=== PATIENT | male | born 1945 | race Caucasian/White ===

== ENCOUNTER → 2017-05-20 | Outpatient (CLI) | payer OTHER | LOC: FIMAGING 09:08 | PROVIDERS: ATTEND Family Medicine | DX: Z13.820 Encounter for screening for osteoporosis (principal); M81.0 Age-related osteoporosis without current pathological fracture ==

== ENCOUNTER 2017-06-08 13:49 | Inpatient (IN) | payer OTHER ==
--- NOTE | 2017-06-08 13:57 | EDPHY ---
HPI/HX/ROS/PE/MDM Narrative: CHIEF COMPLAINT: Chest pain HPI: The patient is a 71 y/o male arriving via EMS with a history of CAD, hyperlipidemia, and prior cardiac stents complaining of chest pain and dyspnea that began last night. He woke up this morning and the pain was still presents. He describes pinpoint "tightening" chest pain on the left side of his sternum. No obvious aggravating or alleviating factors. He had similar pain 11 years ago and required stents at that time. He does not currently have discomfort. He received 324mg PO aspirin en route. REVIEW OF SYSTEMS: Aside from elements discussed in the HPI, a comprehensive 10-point review of systems was reviewed and is negative. PMH: Hip replacement 08/26, bilateral proximal humerus fracture, neuropathy, CAD , hyperlipidemia, 3 cardiac stents 2005 - Plavix, chronic stable schizophrenia Prior medical records reviewed including admission 10/24/14 for fall. SOCIAL HISTORY: Lives at [facility]. Retired. No tobacco or alcohol. PCP: Dr. Cerda PHYSICAL EXAM: General:Patient is alert, in no acute distress. ENT:Eyes are normal to inspection. ENT inspection normal. Neck: Normal inspection. Full range of motion. Respiratory:No respiratory distress. Breath sounds normal bilaterally. Cardiovascular: Regular rate and rhythm. Strong peripheral pulses. Normal cap refill. Abdomen:The abdomen is nontender to palpation. There are no peritoneal signs. Back: Normal to inspection. No tenderness to palpation. Skin: Normal color. No rash. Warm and dry. Extremities: Normal appearance. Full range of motion. Neuro: Oriented x3. Normal motor function. Normal sensory function. ED Course: This is a 71 y/o male with a history of CAD, hyperlipidemia, and 3 cardiac stents who presents with a 1-day history of chest pain, though he has no pain upon assessment. His exam is unremarkable. Plan for chest pain work up including IV, labs, EKG, chest x-ray. The 12 lead EKG was interpreted by myself. See hard copy and/or "tracemaster" electronic copy for interpretation. Chest x-ray: no acute process. 1448: Reevaluated patient and discussed work up. Because his pain was the same as the pain preceding his need for cardiac stents, I've recommended admission. He agrees to this plan. - Data Points Imaging Results: Imaging Impressions Chest X-Ray 06/08/17 13:58 Impression: Clear lungs. No acute process. Imaging: I viewed and interpreted images myself Laboratory Results: Laboratory Results 06/08/17 13:49 06/08/17 13:49 06/08/17 06/08/17 06/08/17 14:24 13:49 13:49 WBC RBC Hgb Hct MCV MCH MCHC RDW Plt Count MPV Neut % (Auto) Lymph % (Auto) Phillips % (Auto) Eos % (Auto) Baso % (Auto) Nucleat RBC Rel Count Absolute Neuts (auto) Absolute Lymphs (auto) Absolute Monos (auto) Absolute Eos (auto) Absolute Basos (auto) Absolute Nucleated RBC Immature Gran % Immature Gran # D-Dimer < 0.27 ug/mLFEU ug/mLFEU REJ (0.00-0.50) Sodium 141 mEq/L mEq/L (134-144) Potassium 4.2 mEq/L mEq/L (3.5-5.2) Chloride 105 mEq/L mEq/L (97-110) Carbon Dioxide 20 mEq/l L mEq/l (22-31) Anion Gap 16 mEq/L mEq/L (8-16) BUN 17 mg/dL mg/dL (7-23) Creatinine 0.9 mg/dL mg/dL (0.7-1.3) Estimated GFR > 60 Glucose 167 mg/dL H mg/dL (70-100) Calcium 10.4 mg/dL mg/dL (8.5-10.4) Troponin I < 0.012 ng/mL ng/mL (0.000-0.034) 06/08/17 13:49 WBC 8.22 10^3/uL 10^3/uL (3.80-9.50) RBC 4.50 10^6/uL 10^6/uL (4.40-6.38) Hgb 14.1 g/dL g/dL (13.7-17.5) Hct 40.9 % % (40.0-51.0) MCV 90.9 fL fL (81.5-99.8) MCH 31.3 pg pg (27.9-34.1) MCHC 34.5 g/dL g/dL (32.4-36.7) RDW 12.7 % % (11.5-15.2) Plt Count 205 10^3/uL 10^3/uL (150-400) MPV 11.0 fL fL (8.7-11.7) Neut % (Auto) 63.2 % % (39.3-74.2) Lymph % (Auto) 26.3 % % (15.0-45.0) Phillips % (Auto) 6.3 % % (4.5-13.0) Eos % (Auto) 2.8 % % (0.6-7.6) Baso % (Auto) 1.0 % % (0.3-1.7) Nucleat RBC Rel Count 0.0 % % (0.0-0.2) Absolute Neuts (auto) 5.20 10^3/uL 10^3/uL (1.70-6.50) Absolute Lymphs (auto) 2.16 10^3/uL 10^3/uL (1.00-3.00) Absolute Monos (auto) 0.52 10^3/uL 10^3/uL (0.30-0.80) Absolute Eos (auto) 0.23 10^3/uL 10^3/uL (0.03-0.40) Absolute Basos (auto) 0.08 10^3/uL 10^3/uL (0.02-0.10) Absolute Nucleated RBC 0.00 10^3/uL 10^3/uL (0-0.01) Immature Gran % 0.4 % % (0.0-1.1) Immature Gran # 0.03 10^3/uL 10^3/uL (0.00-0.10) D-Dimer Sodium Potassium Chloride Carbon Dioxide Anion Gap BUN Creatinine Estimated GFR Glucose Calcium Troponin I General Initial Vital Signs: Initial Vital Signs Temperature (C) 36.8 C 06/08/17 14:06 Heart Rate 84 06/08/17 14:06 Respiratory Rate 18 06/08/17 14:06 Blood Pressure 137/96 H 06/08/17 14:06 O2 Sat (%) 97 06/08/17 14:06 O2 Delivery Mode Room Air Allergies/Adverse Reactions: No Known Allergies Allergy (Verified 06/08/17 14:09) Home Medications: Medication Instructions Recorded Aspirin 81mg 07/19/09 Metoprolol Tartrate 07/19/09 Plavix 07/19/09 VYTORIN 10-20 MG TABLET 07/19/09 ACETAZOLAMIDE 10/24/14 Abilify 10/24/14 Alendronate Sodium [Fosamax 70 MG 10/24/14 (*)] CALCIUM 10/24/14 DIAZEPAM 10/24/14 Fish Oil 10/24/14 Fluoxetine 10/24/14 Furosemide 40 mg PO BID 10/24/14 Omeprazole 10/24/14 Senna 10/24/14 Senokot-S 10/24/14 Vit D3 & K/Berberine HCl/Hops 10/24/14 buPROPion 10/24/14 Departure - Departure Disposition: [facility] Inpatient Acute Clinical Impression: Chest pain Qualifiers: Chest pain type: other chest pain Qualified Code(s): R07.89 - Other chest pain Condition: Fair Referrals: Patient,NotPresent [Primary Care Provider] - As per Instructions Report Scribed for: Daniel Mane Report Scribed by: Yisel Larsen Date of Report: 06/08/17 Time of Report: 13:47 Physician Review and Approval Statement: Portions of this note were transcribed by an ED scribe. I personally performed the history, physical exam, and medical decision making; and confirm the accuracy of the information in the transcribed note.
--- NOTE | 2017-06-08 14:03 | CPEKG ---
Heart Rate: 78 RR Interval: 769 P-R Interval: 152 QRSD Interval: 86 QT Interval: 380 QTC Interval: 433 P Nor[place]: 66 QRS Nor[place]: 264 T Wave Nor[place]: 263 EKG Severity - ABNORMAL ECG - EKG Impression: SINUS RHYTHM EKG Impression: SUPERIOR QRS AXIS EKG Impression: NONSPECIFIC REPOL ABNORMALITY, DIFFUSE LEADS Electronically Signed By: Albino Marrero 10-Jun-2017 11:04:25
[2017-06-08 14:15] LABS: % IMMATURE GRANULYOCYTES 0.4 % (0.0-1.1); ABSOLUTE IMMATURE GRANULOCYTES 0.03 10^3/uL (0.00-0.10); ADD DIFF? NO; ADD MORPH? NO; ADD SCAN? NO; ANION GAP 16 mEq/L (8-16); ATYPICAL LYMPHOCYTE FLAG 0 (0-99); CALCIUM 10.4 mg/dL (8.5-10.4); CARBON DIOXIDE 20 mEq/l (22-31); CHLORIDE 105 mEq/L (97-110); CREATININE 0.9 mg/dL (0.7-1.3); FRAGMENT RBC FLAG 0 (0-99); GLOMERULAR FILTRATION RATE > 60; GLUCOSE 167 mg/dL (70-100); HEMATOCRIT 40.9 % (40.0-51.0); HEMOGLOBIN 14.1 g/dL (13.7-17.5); LEFT SHIFT FLG 0 (0-99); LIPEMIA HEMOLYSIS FLAG 90 (0-99); MEAN CELL HEMOGLOBIN 31.3 pg (27.9-34.1); MEAN CELL HEMOGLOBIN CONCENTR. 34.5 g/dL (32.4-36.7); MEAN CELL VOLUME 90.9 fL (81.5-99.8); PLATELET CLUMPS FLAG 10 (0-99); PLATELET COUNT 205 10^3/uL (150-400); POTASSIUM 4.2 mEq/L (3.5-5.2); RED CELL DISTRIBUTION WIDTH 12.7 % (11.5-15.2); SODIUM 141 mEq/L (134-144)
[2017-06-08 14:27] LABS: TROPONIN I < 0.012 ng/mL (0.000-0.034)
[2017-06-08] MEDS ORDERED: ONDANSETRON 4 MG/2 ML VIAL IVP PRN (15:23)
[2017-06-08] MEDS ORDERED: ONDANSETRON DISINTEGRATING 4 MG TAB PO PRN (15:23)
--- NOTE | 2017-06-08 19:20 | PDGENHP ---
History and Physical - Chief Complaint Acute chest pain - History of Present Illness Primary care provider: Dr. Cerda HPI: 71-year-old male presenting with acute chest pain located left of his sternum, characterized as similar to his previous anginal chest pain which resulted in 3 cardiac stents in 2005. The patient experienced a tightening sensation in his chest between 7-7:30 p.m. on the evening prior to arrival. The duration was short and was alleviated without any intervention. He then experienced recurrence of the symptoms on the morning of this presentation and they persisted until approximately 12:00 p.m.. Again they were alleviated without intervention but the patient immediately sought medical attention. He has experienced some associated dyspnea, and this is somewhat exacerbated by ambulating with his walker. The patient otherwise does not exercise, and does not know what his exercise tolerance is. He has been adherent to all of his home medications including aspirin and Plavix. History Information - Allergies/Home Medication List Allergies/Adverse Reactions: No Known Allergies Allergy (Verified 06/08/17 14:09) Home Medications: Aspirin EC [Aspirin EC 81 mg (*)] 81 mg PO HS 06/08/17 [Last Taken 06/07/17] Cetirizine [ZyrTEC 10 mg (*)] 20 mg PO HS 06/08/17 [Last Taken 06/07/17] Clopidogrel Bisulfate [Plavix (*)] 75 mg PO HS 06/08/17 [Last Taken 06/07/17] Diazepam [Valium 5 MG (*)] 10 mg PO HS 06/08/17 [Last Taken 06/07/17] Metoprolol Tartrate [Lopressor 25 mg (*)] 25 mg PO BID 06/08/17 [Last Taken ] Multivitamins [Multivitamin (*)] 1 each PO HS 06/08/17 [Last Taken 06/08/17] Guernsey-3 Fatty Acids [Fish Oil 1000 mg (*)] 1,000 mg PO HS 06/08/17 [Last Taken 06/07/17] Omeprazole [Prilosec 20 mg] 40 mg PO HS 06/08/17 [Last Taken 06/07/17] Ranitidine HCl [Zantac 75] 75 mg PO HS 06/08/17 [Last Taken 06/07/17] Sennosides 17.2 mg PO HS 06/08/17 [Last Taken 06/07/17] diphenhydrAMINE [Benadryl 25 MG (*)] 50 mg PO HS 06/08/17 [Last Taken 06/07/17] I have personally reviewed and updated: family history, medical history, social history, surgical history - Past Medical History coronary artery disease (With 3 cardiac stents placed in 2005), hyperlipidemia Additional medical history: Schizophrenia. Bilateral proximal humerus fractures. Neuropathy - Surgical History Reports: coronary stent Additional surgical history: Hip 2012 - Family History Additional family history: Father with coronary artery disease in his 70s, CABG x2 in his 60s - Social History Smoking Status: Never smoked Alcohol Use: None Drug Use: None Additional social history: Lives at [facility], uses a walker at baseline Review of Systems Review of Systems: ROS: 10pt was reviewed & negative except for what was stated in HPI & below Cardiac: Reports: chest pain Respiratory: Reports: other (Dyspnea) Physical Exam Physical Exam: Temp Pulse Resp BP Pulse Ox 36.3 C 62 17 138/72 H 92 06/08/17 16:47 06/08/17 16:47 06/08/17 16:47 06/08/17 16:47 06/08/17 16:47 Constitutional: no apparent distress, appears nourished, not in pain, No uncomfortable Eyes: PERRL, anicteric sclera, EOMI Ears, Nose, Mouth, Throat: moist mucous membranes, hearing normal, ears appear normal, no oral mucosal ulcers Cardiovascular: No systolic murmur, No irregularly irregular, No JVD, No tachycardia, No edema Respiratory: no respiratory distress, no rales or rhonchi, clear to auscultation Gastrointestinal: normoactive bowel sounds Genitourinary: no bladder fullness, no bladder tenderness Skin: No rash (Or vesicular lesions over the chest) Neurologic: AAOx3, sensation intact bilaterally, No weakness Psychiatric: interacting appropriately, not anxious, not encephalopathic, thought process linear, other (Talkative and tangential but redirectable) Lab Data & Imaging Review 06/08/17 13:49 06/08/17 13:49 WBC 8.22 10^3/uL (3.80-9.50) 06/08/17 13:49 RBC 4.50 10^6/uL (4.40-6.38) 06/08/17 13:49 Hgb 14.1 g/dL (13.7-17.5) 06/08/17 13:49 Hct 40.9 % (40.0-51.0) 06/08/17 13:49 MCV 90.9 fL (81.5-99.8) 06/08/17 13:49 MCH 31.3 pg (27.9-34.1) 06/08/17 13:49 MCHC 34.5 g/dL (32.4-36.7) 06/08/17 13:49 RDW 12.7 % (11.5-15.2) 06/08/17 13:49 Plt Count 205 10^3/uL (150-400) 06/08/17 13:49 MPV 11.0 fL (8.7-11.7) 06/08/17 13:49 Neut % (Auto) 63.2 % (39.3-74.2) 06/08/17 13:49 Lymph % (Auto) 26.3 % (15.0-45.0) 06/08/17 13:49 Glades % (Auto) 6.3 % (4.5-13.0) 06/08/17 13:49 Eos % (Auto) 2.8 % (0.6-7.6) 06/08/17 13:49 Baso % (Auto) 1.0 % (0.3-1.7) 06/08/17 13:49 Nucleat RBC Rel Count 0.0 % (0.0-0.2) 06/08/17 13:49 Absolute Neuts (auto) 5.20 10^3/uL (1.70-6.50) 06/08/17 13:49 Absolute Lymphs (auto) 2.16 10^3/uL (1.00-3.00) 06/08/17 13:49 Absolute Monos (auto) 0.52 10^3/uL (0.30-0.80) 06/08/17 13:49 Absolute Eos (auto) 0.23 10^3/uL (0.03-0.40) 06/08/17 13:49 Absolute Basos (auto) 0.08 10^3/uL (0.02-0.10) 06/08/17 13:49 Absolute Nucleated RBC 0.00 10^3/uL (0-0.01) 06/08/17 13:49 Immature Gran % 0.4 % (0.0-1.1) 06/08/17 13:49 Immature Gran # 0.03 10^3/uL (0.00-0.10) 06/08/17 13:49 D-Dimer < 0.27 ug/mLFEU (0.00-0.50) 06/08/17 14:24 Sodium 141 mEq/L (134-144) 06/08/17 13:49 Potassium 4.2 mEq/L (3.5-5.2) 06/08/17 13:49 Chloride 105 mEq/L (97-110) 06/08/17 13:49 Carbon Dioxide 20 mEq/l (22-31) L 06/08/17 13:49 Anion Gap 16 mEq/L (8-16) 06/08/17 13:49 BUN 17 mg/dL (7-23) 06/08/17 13:49 Creatinine 0.9 mg/dL (0.7-1.3) 06/08/17 13:49 Estimated GFR > 60 06/08/17 13:49 Glucose 167 mg/dL (70-100) H 06/08/17 13:49 Calcium 10.4 mg/dL (8.5-10.4) 06/08/17 13:49 Troponin I < 0.012 ng/mL (0.000-0.034) 06/08/17 13:49 Visualized and Interpreted Chest x-ray results: Yes Chest X-Ray results: no infiltrate Visualized and Interpreted EKG results: Yes EKG Interpretation: Positive for: other (Normal sinus rhythm) Assessment & Plan Assessment: 71-year-old male presents with acute chest pain in the setting of known coronary artery disease Plan: 1. Chest pain. Acute, new problem this provider, further workup indicated. Patient's presentation is highly concerning for acute coronary syndrome given that his characterization of the pain is quite similar to that experienced in 2006 when he experienced was most likely an ST-elevation myocardial infarction based on his description of immediate PCI, with subsequent PCI 2 weeks later after experienced recurrence chest pain, reviewed outside records from as far back as 2009, unable to obtain the 2006 reports -given aspirin 325 EN route, continue in a.m. with home dosage of Plavix, beta- aaron -check hemoglobin A1c and lipid panel -cycle cardiac enzymes and monitor on telemetry -if chest pain-free get Lexiscan stress test in a.m. -D-dimer negative, ruling out pulmonary embolism -if abnormal stress test, get cardiology consultation for catheterization, keep NPO in a.m. until stress test result available 2. Schizophrenia. Chronic, stable, continue home medications 3. Neuropathy. Chronic, continue home medications Diet. Cardiac, NPO in a.m. Prophylaxis. High risk patient, Lovenox 40 Code. Full, POA is Franchesca Bowden, sister, phone [phone] Disposition. Anticipated discharge 06/09, pending workup as outlined above. The patient has abnormal stress test requires cardiac catheterization, he should be upgraded to inpatient admission status for reasonable medical necessity including acute coronary syndrome requiring catheterization. I have discussed patient's presentation with Dr. Daniel Mane, we both agree the patient should be monitored in the PCU.
[2017-06-08] MEDS ORDERED: NON-FORMULARY NEW DRUG (Ranitidine Hcl [Zantac 75] 75 MG) PO SCH (21:00)
[2017-06-08] MEDS ORDERED: NON-FORMULARY NEW DRUG (Omeprazole [Prilosec 20 Mg] 20 MG) PO SCH (21:00)
[2017-06-08] MEDS: MULTIVITAMINS 1 EACH TAB PO SCH (21:14)
[2017-06-08] MEDS: diphenhydrAMINE 25 MG CAP PO SCH (21:14)
[2017-06-08] MEDS: CETIRIZINE 10 MG TAB PO SCH (21:14)
[2017-06-08] MEDS: OMEGA-3 FATTY ACIDS 1,000 MG CAP PO SCH (21:14)
[2017-06-08] MEDS: CLOPIDOGREL BISULFATE 75 MG TAB PO SCH (21:15)
[2017-06-08] MEDS: PANTOPRAZOLE SODIUM 40 MG TAB PO SCH (21:15)
[2017-06-08] MEDS: METOPROLOL TARTRATE 25 MG TAB PO SCH (21:15)
[2017-06-08] MEDS: FAMOTIDINE 20 MG TAB PO SCH (21:15)
[2017-06-08] MEDS: DIAZEPAM 5 MG TAB PO SCH (21:16)
[2017-06-08] MEDS: SENNOSIDES 1 TAB PO SCH (21:21)
[2017-06-09 05:31] LABS: % IMMATURE GRANULYOCYTES 0.4 % (0.0-1.1); ABSOLUTE IMMATURE GRANULOCYTES 0.03 10^3/uL (0.00-0.10); ADD DIFF? NO; ADD MORPH? NO; ADD SCAN? NO; ATYPICAL LYMPHOCYTE FLAG 0 (0-99); FRAGMENT RBC FLAG 0 (0-99); HEMATOCRIT 36.8 % (40.0-51.0); HEMOGLOBIN 12.4 g/dL (13.7-17.5); LEFT SHIFT FLG 0 (0-99); LIPEMIA HEMOLYSIS FLAG 80 (0-99); MEAN CELL HEMOGLOBIN 31.4 pg (27.9-34.1); MEAN CELL HEMOGLOBIN CONCENTR. 33.7 g/dL (32.4-36.7); MEAN CELL VOLUME 93.2 fL (81.5-99.8); MEAN PLATELET VOLUME 11.4 fL (8.7-11.7); PLATELET CLUMPS FLAG 0 (0-99); PLATELET COUNT 182 10^3/uL (150-400); RED BLOOD CELL COUNT 3.95 10^6/uL (4.40-6.38); RED CELL DISTRIBUTION WIDTH 12.9 % (11.5-15.2)
[2017-06-09 05:44] LABS: ALANINE AMINOTRANSFERASE 36 IU/L (21-72); ALBUMIN 3.7 g/dL (3.5-5.0); ALKALINE PHOSPHATASE 48 IU/L (38-126); ANION GAP 15 mEq/L (8-16); ASPARTATE AMINOTRANSFERASE 25 IU/L (17-59); BILIRUBIN,TOTAL 0.1 mg/dL (0.1-1.4); CALCIUM 9.6 mg/dL (8.5-10.4); CARBON DIOXIDE 18 mEq/l (22-31); CHLORIDE 109 mEq/L (97-110); CHOLESTEROL 92 mg/dL (140-220); CHOLESTEROL/HDL RATIO 2.63 RATIO (1.00-4.97); GLOMERULAR FILTRATION RATE > 60; GLUCOSE 111 mg/dL (70-100); HIGH DENSITY LIPOPROTEIN 35 mg/dL (40-65); LDL/HDL RATIO 0.86 RATIO (1.00-3.64); LOW DENSITY LIPOPROTEIN 30 mg/dL (80-100); MAGNESIUM 1.9 mg/dL (1.6-2.3); NON-HIGH DENSITY LIPOPROTEIN 57 mg/dL (90-129); POTASSIUM 4.3 mEq/L (3.5-5.2); SODIUM 142 mEq/L (134-144); TOTAL PROTEIN 7.4 g/dL (6.3-8.2); TRIGLYCERIDE 135 mg/dL (40-150); VERY LOW DENSITY LIPOPROTEINS 27 mg/dL (8-25)
[2017-06-09 05:52] LABS: TROPONIN I < 0.012 ng/mL (0.000-0.034)
[2017-06-09] MEDS ORDERED: ENOXAPARIN 40 MG/0.4 ML SYR SC SCH (09:00)
[2017-06-09] MEDS ORDERED: REGADENOSON 0.4 MG/5 ML SYR IVP ONE (09:20)
[2017-06-09] MEDS: ASPIRIN EC 325 MG TAB PO SCH (10:20)
[2017-06-09] MEDS: METOPROLOL TARTRATE 25 MG TAB PO SCH ×2 (10:21→20:20)
--- NOTE | 2017-06-09 10:35 | CPR ---
[f rep st] NONINVASIVE CARDIAC PROCEDURE REPORT INDICATIONS: Chest pain. Abnormal EKG. PROCEDURE: Written informed consent was obtained prior to the procedure. All monitoring was establi shed on 2 [place] telemetry floor. Lexiscan and Cardiolite injection were performed in sequence. There were no complications. The nuclear report will be dictated separately by the radiologist. EKG at b aseline showed normal sinus rhythm with T inversions in leads V2 through V6. There were no EKG starkey es with Lexiscan injection. /[id number]/MODL
[2017-06-09] MEDS: ACETAMINOPHEN 325 MG TAB PO PRN ×2 (13:24→18:05)
--- NOTE | 2017-06-09 14:00 | HOSPPROG ---
Hospitalist Progress Note Assessment/Plan: 1. Chest pain. +H/O NH in 2006 and abnormal stress test today, ?ischemia vs artifact. Discussed with Dr. Marrero. D dimer neg. EKG on admission with mild downsloping ST depression. -repeat EKG now -plan for resting images in am, NPO after midnight -cont ASA, Plavix, BB -LDL 30 2. Schizophrenia. Chronic, stable, continue home medications 3. Neuropathy. Chronic, continue home medications Diet. Cardiac, NPO in a.m. Prophylaxis. High risk patient, Lovenox 40 Code. Full, POFlorentin is Franchesca Bowden, sister, phone [phone] Disposition- change to inpt, needs ongoing cardiac workup Subjective: Pt feels ok. Denies CP or SOB. No N/V/D. Resting comfortably. He is hungry, NPO this am. Objective: Vital Signs Temp Pulse Resp BP Pulse Ox 37.1 C 59 L 14 140/67 H 92 06/09/17 11:59 06/09/17 11:59 06/09/17 11:59 06/09/17 11:59 06/09/17 11:59 Laboratory Results 06/09/17 04:39 06/09/17 04:39 06/08/17 06/09/17 06/10/17 05:59 05:59 05:59 Output Total 550 225 Balance -550 -225 - Physical Exam Constitutional: no apparent distress Eyes: PERRL Ears, Nose, Mouth, Throat: moist mucous membranes Cardiovascular: regular rate and rhythym, no murmur, rub, or gallop Respiratory: no respiratory distress, clear to auscultation Gastrointestinal: normoactive bowel sounds, soft, non-tender abdomen Skin: warm Musculoskeletal: full muscle strength Neurologic: AAOx3 Psychiatric: interacting appropriately ICD10 Worksheet Patient Problems: Problems Problem Status Onset Chest pain Acute
--- NOTE | 2017-06-09 14:19 | PDMN ---
Medical Necessity Medical necessity: C/M review: Patient meets INPT criteria under [facility] M-89 Chest pain; Acute chest pain, o17 abnormal stress myocardial perfusion scan concerning for possible cardiac ischemia, requiring planned 06/10/2016 myocardial perfusion scan rest imaging, ongoing cardiac monitoring, cardiac workup, comorbid schizophrenia, neuropathy, history of RI in 2005. MD anticipates > 2 MN LOS for ongoing med nec for eval and TX of above. Patient is Medicare Advantage which follows guidelines CMS puts forth.
--- NOTE | 2017-06-09 14:32 | ASMTCMCOM ---
CM Note CM Note Notes: 71 year old male admitted for CP. Had CP in 2006 S/P stents. He has a hx of CAD, HLD, Scizophrenia, [id number]-joveycun-ojgqftlm Falls-humerus and shoulder fx's-uses a walker. Patient lives at [facility]. He reports that his meals are provided at [facility], that he has a housekeeper/custodian/laundry worker who comes every 2 wks. Therapies have not seen as yet. Patient may need another stress test before returning home. CM to follow for possible discharge needs. Date Signed: 06/09/2017 02:31 PM Electronically Signed By:Lotus Alcaraz LCSW
--- NOTE | 2017-06-09 17:40 | CPEKG ---
Heart Rate: 64 RR Interval: 938 P-R Interval: 156 QRSD Interval: 86 QT Interval: 432 QTC Interval: 446 P Marquez: 61 QRS Marquez: 26 T Wave Marquez: 140 EKG Severity - ABNORMAL ECG - EKG Impression: SINUS RHYTHM EKG Impression: LOW VOLTAGE IN FRONTAL LEADS EKG Impression: REPOL ABNRM SUGGESTS ISCHEMIA, ANT-LAT LEADS Electronically Signed By: Benny Campos 10-Jun-2017 07:05:11
[2017-06-09] MEDS: OMEGA-3 FATTY ACIDS 1,000 MG CAP PO SCH (20:20)
[2017-06-09] MEDS: CLOPIDOGREL BISULFATE 75 MG TAB PO SCH (20:20)
[2017-06-09] MEDS: CETIRIZINE 10 MG TAB PO SCH (20:20)
[2017-06-09] MEDS: FAMOTIDINE 20 MG TAB PO SCH (20:20)
[2017-06-09] MEDS: MULTIVITAMINS 1 EACH TAB PO SCH (20:20)
[2017-06-09] MEDS: DIAZEPAM 5 MG TAB PO SCH (20:20)
[2017-06-09] MEDS: diphenhydrAMINE 25 MG CAP PO SCH (20:20)
[2017-06-09] MEDS: PANTOPRAZOLE SODIUM 40 MG TAB PO SCH (20:20)
[2017-06-09] MEDS: SENNOSIDES 1 TAB PO SCH (20:21)
[2017-06-10 02:37] LABS: HEMOGLOBIN A1C 6.5 % (4.0-6.0)
[2017-06-10] MEDS: ASPIRIN EC 325 MG TAB PO SCH (11:30)
[2017-06-10] MEDS: METOPROLOL TARTRATE 25 MG TAB PO SCH (11:30)
[2017-06-10 12:50] VITALS: BP 105/73; PULSE 54; RESP 16; TEMP 97.7; O2SAT 93
--- NOTE | 2017-06-11 04:18 | GDS ---
[f rep st] DISCHARGE SUMMARY DISCHARGE DIAGNOSES: 1. Chest pain, resolved. 2. Coronary artery disease with history of cardiac stenting in 2005. 3. Schizophrenia. 4. Neuropathy. CONSULTANTS: None. IMAGING STUDIES/PROCEDURES: Nuclear medicine myocardial perfusion scan was performed at rest and wit h stress, and after both images were reviewed, there was no evidence of myocardial ischemia. HISTORY: For details, please see dictated history and physical dated June 08, 2017. In brief, t he patient is a 71-year-old male with history of schizophrenia and prior coronary artery disease with cardiac stents placed in 2005, who presented to the emergency department with chest pain. He was ad mitted to the hospital for further evaluation. HOSPITAL COURSE: Patient was admitted to the telemetry unit. He had negative troponins x3. His eliza st pain improved. He underwent a Lexiscan, which initially raised suspicion for possible ischemia ve rsus artifact. He was kept an additional night for resting images the following morning, and upon re view of both resting and stress images with the culinary internship and the radiologist team, there was no e vidence of ischemia. The patient was discharged home with plans to follow up with [facility]. DISCHARGE DISPOSITION: Patient is discharged home in stable condition. DISPOSITION MEDICATIONS: Please see [facility] for completed outpatient medication list. There are no new medications on discharge. He will continue his aspirin, Plavix, and beta aaron. He is not re ceiving a statin noting an LDL of 30. FOLLOWUP: Dr. Dinah Melchor, [facility]. /[id number]/MODL
== END 2017-06-10 17:50 | disposition home or self-care (01) | DRG 313 ==
LOC: EDUNIT# → EDBD → F2W 16:23 → OBSVTOIN 06-09 13:56
PROVIDERS: ADMIT Internal Medicine; ATTEND Internal Medicine
DX: R07.9 Chest pain, unspecified (principal); I25.10 Atherosclerotic heart disease of native coronary artery without angina pectoris; F20.9 Schizophrenia, unspecified; G62.9 Polyneuropathy, unspecified; I25.2 Old myocardial infarction; E78.5 Hyperlipidemia, unspecified; Z96.649 Presence of unspecified artificial hip joint; Z95.5 Presence of coronary angioplasty implant and graft
CPT/HCPCS: A9500; G0378; J1650; J2785